=== PATIENT | male | born 1945 | race Caucasian/White ===

== ENCOUNTER 2020-06-02 16:02 | Inpatient (IN) | payer MEDICARE ==
[~2020-06-02] VITALS: Ht 180.3 cm; Wt 87.1 kg
[~2020-06-02 16:02] MED LIST: EPINEPHRINE 1MG SYG 10ML IVP ONE; SODIUM BICARB 8.4% 50ML SYRINGE IVP ONE
[2020-06-02] MEDS ORDERED: PANTOPRAZOLE 40 MG/VIAL ONE ×2 (16:10→23:57)
[2020-06-02 16:29] LABS: BASOPHILS % (AUTO) 0.2 % (0.0-5.0); EOSINOPHILS % (AUTO) 0.3 % (0.0-8.0); LYMPHOCYTES % (AUTO) 7.2 % (21.0-51.0); MEAN CORPUSCULAR HEMOGLOBIN 34.5 pg (27.0-33.0); MEAN CORPUSCULAR HGB CONC 30.2 g/dL (32.0-36.0); MEAN CORPUSCULAR VOLUME 114.5 fL (79-99); MONOCYTES % (AUTO) 3.8 % (3.0-13.0); NEUTROPHILS % (AUTO) 87.6 % (40.0-77.0); NUCLEATED RED BLOOD CELLS 0.6 % (0.0-0.19); PLATELET COUNT (AUTO) 310 K/uL (130-400); RED CELL DISTRIBUTION WIDTH 19.5 % (11.0-15.5); WHITE BLOOD COUNT (AUTO) 11.4 K/uL (4.8-10.8)
[2020-06-02 16:31] LABS: HEMATOCRIT 12.6 % (42-54)
[2020-06-02 16:37] LABS: ALBUMIN 2.3 g/dL (3.5-5.0); BILIRUBIN,TOTAL 0.2 mg/dL (0.2-1.0); CREATININE 2.2 mg/dL (0.5-1.5); POTASSIUM 4.3 mmol/L (3.5-5.1); TOTAL PROTEIN, SERUM 5.1 g/dL (6.0-8.3)
[2020-06-02 16:47] LABS: APPEARANCE,URINE Clear (CLEAR); BILIRUBIN,URINE Negative (NEGATIVE); COLOR,URINE Yellow (YELLOW); GLUCOSE, URINE (UA) Negative (NEGATIVE); KETONES,URINE Negative (NEGATIVE); LEUKOCYTE ESTERASE ,URINE Negative (NEGATIVE); NITRATE,URINE Negative (NEGATIVE); OCCULT BLOOD,URINE Negative (NEGATIVE); PROTEIN,URINE Negative (NEGATIVE); UROBILINOGEN,URINE 0.2 mg/dL (0.2-1.0)
[2020-06-02 17:11] LABS: INR 1.12 (0.85-1.15); PROTHROMBIN TIME 11.9 SEC (9.6-11.6)
[2020-06-02 17:13] LABS: PARTIAL THROMBOPLASTIN TIME 23.3 SEC (26.3-35.5)
[2020-06-02] MEDS ORDERED: ONDANSETRON 4MG INJ IV PRN (18:15)
[2020-06-02] MEDS ORDERED: ACETAMINOPHEN 325 MG TAB PO PRN ×2 (18:15)
[2020-06-02 18:41] LABS: RETICULOCYTE % (AUTO) 16.08 % (0.42-2.23)
[2020-06-02 18:45] LABS: HEMATOCRIT 11.8 % (42-54)
[2020-06-02 18:50] LABS: % IRON SATURATION 89.9 % (30-44)
[2020-06-02 19:01] LABS: ALBUMIN 2.2 g/dL (3.5-5.0); BILIRUBIN,TOTAL 0.2 mg/dL (0.2-1.0); CREATININE 2.2 mg/dL (0.5-1.5); POTASSIUM 4.2 mmol/L (3.5-5.1); TROPONIN I 0.59 ng/mL (0.00-0.06)
[2020-06-03] VITALS (22 sets, daily range): BP systolic 109–161; BP diastolic 43–99
[2020-06-03] MEDS ORDERED: ONDANSETRON 4MG INJ ONE (02:30)
[2020-06-03 03:22] LABS: TROPONIN I 1.22 ng/mL (0.00-0.06)
[2020-06-03 03:28] LABS: HEMATOCRIT 19.4 % (42-54)
[2020-06-03 03:36] LABS: HEMOGLOBIN A1C 4.8 % (4.0-6.0)
[2020-06-03 04:12] LABS: CREATININE 1.9 mg/dL (0.5-1.5); POTASSIUM 4.1 mmol/L (3.5-5.1)
[2020-06-03 08:30] LABS: HEMATOCRIT 18.8 % (42-54)
[2020-06-03] MEDS ORDERED: PANTOPRAZOLE 40 MG/VIAL ONE (08:39)
[2020-06-03] MEDS ORDERED: 0.9%NACL 100ML 100 ML IV ONE (08:39)
[2020-06-03] MEDS: SOTALOL HCL 80 MG TABLET PO SCH ×2 (09:00→20:43)
[2020-06-03] MEDS ORDERED: LACTATED RINGERS 1000ML 1,000 ML IV SCH ×2 (09:30→15:15)
[2020-06-03] MEDS ORDERED: HUMAN PROTHROMBIN COMPLX(PCC) 500 UNIT KIT IV SCH (09:45)
[2020-06-03] MEDS ORDERED: TRANEXAMIC ACID 1000MG/10ML IV ONE (09:45)
[2020-06-03] MEDS ORDERED: TRANEXAMIC ACID 1,000 MG in 0.9%NACL 100ML 100 ML IV SCH (10:15)
[2020-06-03] MEDS ORDERED: HUMAN PROTHROMBIN COMPLX(PCC) 500 UNIT KIT IV ONE (10:15)
[2020-06-03 11:31] LABS: CREATINE KINASE, TOTAL 49 U/L (21-232); MYOGLOBIN 61 ng/mL (10-92)
[2020-06-03] MEDS ORDERED: LIDOCAINE HCL 400MG/20ML VIAL ONE ×2 (11:58→14:39)
[2020-06-03] MEDS ORDERED: PROPOFOL 10 MG/ML 20ML VIAL IV ONE ×3 (11:58→15:18)
[2020-06-03] MEDS ORDERED: EPINEPHRINE PF 1MG AMP ONE ×2 (12:19→15:17)
[2020-06-03 14:20] LABS: HEMATOCRIT 23.3 % (42-54)
[2020-06-03] MEDS ORDERED: IODIXANOL 320 MG/ML 100 ML VIAL ONE ×2 (14:38→17:05)
[2020-06-03] MEDS ORDERED: SOLU-MEDROL 125MG VIAL ONE (14:50)
[2020-06-03] MEDS ORDERED: DiphenhydrAMINE HCL 50 MG/ML VIAL ONE (14:51)
[2020-06-03] MEDS ORDERED: DiphenhydrAMINE HCL 50 MG/ML VIAL IV SCH (14:59)
[2020-06-03] MEDS ORDERED: SOLU-MEDROL 125MG VIAL IVP SCH (15:00)
[2020-06-03] MEDS ORDERED: FENTANYL 2500MCG+NS 250ML 250 ML IV STA (15:04)
[2020-06-03] MEDS ORDERED: FENTANYL 2500MCG+NS 250ML 250 ML IV SCH (15:15)
[2020-06-03] MEDS ORDERED: SUCCINYLCHOLINE 200MG/10ML SYR ONE (15:18)
[2020-06-03] MEDS ORDERED: ROCURONIUM 10MG/1ML SYR 10 MG/ML ML ONE (15:18)
[2020-06-03] MEDS ORDERED: MIDAZOLAM HCL 1 MG/ML 2ML VIAL ONE ×2 (15:19→17:39)
[2020-06-03] MEDS ORDERED: NOREPINEPHRINE BITARTRATE 1 MG/1 ML ML IV ONE (15:31)
[2020-06-03] MEDS ORDERED: KETAMINE 50MG/ML SYRINGE 50 MG/ML DISP.SYRIN IV ONE (15:31)
[2020-06-03] MEDS ORDERED: GLYCOPYRROLATE 1 MG/5 ML SYRINGE ONE (15:39)
[2020-06-03] MEDS ORDERED: NOREPINEPHRIN 4MG/NS 250ML 250 ML IV SCH (15:45)
[2020-06-03] MEDS ORDERED: FENTANYL CITRATE PF 0.05 MG/ML 1,000 MCG in 0.9%NACL 100ML 100 ML IVPB SCH (15:45)
[2020-06-03] MEDS ORDERED: PROPOFOL 1000 MG/100 ML IV PRN (15:45)
[2020-06-03 18:59] LABS: HEMATOCRIT 23.7 % (42-54)
[2020-06-03] MEDS: PROPOFOL 1000 MG/100 ML IV PRN ×2 (19:09→22:24)
[2020-06-03] MEDS ORDERED: SUCRALFATE 1 GM TABLET ONE (19:43)
[2020-06-03] MEDS: SUCRALFATE 1 GM TABLET NG SCH (20:42)
[2020-06-03] MEDS ORDERED: 0.9% NACL 250ML 250 ML IV ONE (21:22)
[2020-06-03] MEDS: PANTOPRAZOLE 40MG INJ 80 MG in 0.9%NACL 100ML 100 ML IV SCH (22:25)
[2020-06-04] VITALS (83 sets, daily range): BP systolic 75–156; BP diastolic 40–143
[2020-06-04 01:04] LABS: HEMATOCRIT 21.9 % (42-54)
[2020-06-04] MEDS: PROPOFOL 1000 MG/100 ML IV PRN ×4 (03:01→20:37)
[2020-06-04 03:44] LABS: ALBUMIN 1.9 g/dL (3.5-5.0); BILIRUBIN,TOTAL 0.4 mg/dL (0.2-1.0); CREATININE 1.3 mg/dL (0.5-1.5); POTASSIUM 3.9 mmol/L (3.5-5.1); TOTAL PROTEIN, SERUM 4.4 g/dL (6.0-8.3)
[2020-06-04 04:08] LABS: ABG BASE EXCESS -7.2 mmol/L (-2.0-3.0); ABG HCO3 17.3 mmol/L (21.0-28.0); ABG OXYGEN SATURATION 99.2 % (95.0-99.0); ABG PCO2 33 mmHg (35-48)
[2020-06-04 04:11] LABS: HEMATOCRIT 21.9 % (42-54); MEAN CORPUSCULAR HEMOGLOBIN 31.6 pg (27.0-33.0); MEAN CORPUSCULAR HGB CONC 33.8 g/dL (32.0-36.0); MEAN CORPUSCULAR VOLUME 93.6 fL (79-99); NUCLEATED RED BLOOD CELLS 0.4 % (0.0-0.19); RED BLOOD CELL COUNT(AUTO) 2.34 MIL/uL (4.50-6.20); RED CELL DISTRIBUTION WIDTH 19.8 % (11.0-15.5); WHITE BLOOD COUNT (AUTO) 9.6 K/uL (4.8-10.8)
[2020-06-04] MEDS: SUCRALFATE 1 GM TABLET NG SCH ×3 (05:43→20:38)
[2020-06-04] MEDS: SOTALOL HCL 80 MG TABLET PO SCH ×2 (08:52→20:38)
[2020-06-04] MEDS ORDERED: ALBUMIN (HUMAN) 5% 500 ML IV ONE (11:00)
[2020-06-04] MEDS ORDERED: PROPOFOL 10 MG/ML 20ML VIAL IV ONE (11:22)
[2020-06-04] MEDS ORDERED: FENTANYL CITRATE PF 50 MCG/1 ML 5ML AMP IV ONE (11:23)
[2020-06-04] MEDS ORDERED: ROCURONIUM 10MG/1ML SYR 10 MG/ML ML ONE ×2 (11:24→12:52)
[2020-06-04] MEDS ORDERED: EPHEDRINE SULFATE 50 MG/ML AMPULE ONE (11:29)
[2020-06-04] MEDS ORDERED: ZOSYN 3.375GM+NS 50ML 50 ML IV ONE (11:39)
[2020-06-04 11:49] LABS: ABG BASE EXCESS -7.1 mmol/L (-2.0-3.0); ABG HCO3 18.6 mmol/L (21.0-28.0); ABG OXYGEN SATURATION 98.2 % (95.0-99.0); ABG PCO2 38 mmHg (35-48)
[2020-06-04] MEDS ORDERED: SODIUM BICARB 8.4% 50ML SYRINGE ONE (11:54)
[2020-06-04] MEDS ORDERED: CEFAZOLIN SODIUM 1 GM VIAL ONE (12:22)
[2020-06-04] MEDS ORDERED: NEOMY SULF/POLYMYXIN B SULFATE 1 ML AMPUL IR ONE (12:22)
[2020-06-04] MEDS ORDERED: PHENYLEPHRINE HCL 10 MG/ML 1ML VIAL IV ONE (12:46)
[2020-06-04] MEDS ORDERED: ONDANSETRON 4MG INJ ONE (12:47)
[2020-06-04] MEDS ORDERED: DEXAMETHASONE SOD PHOSPHATE 10MG/ML 1ML VIAL ONE (12:47)
[2020-06-04] MEDS: LACTATED RINGERS 1000ML 1,000 ML IV ONE (15:05)
[2020-06-04 17:42] LABS: HEMATOCRIT 35.2 % (42-54)
[2020-06-04 18:00] LABS: INR 1.09 (0.85-1.15); PROTHROMBIN TIME 11.6 SEC (9.6-11.6)
[2020-06-04] MEDS: PANTOPRAZOLE 40MG INJ 80 MG in 0.9%NACL 100ML 100 ML IV SCH (22:13)
[2020-06-05] VITALS (137 sets, daily range): BP systolic 66–235; BP diastolic 41–234
[2020-06-05] MEDS: PROPOFOL 1000 MG/100 ML IV PRN ×4 (03:10→19:50)
[2020-06-05 03:34] LABS: ABG BASE EXCESS -5.4 mmol/L (-2.0-3.0); ABG HCO3 20.1 mmol/L (21.0-28.0); ABG OXYGEN SATURATION 94.3 % (95.0-99.0); ABG PCO2 40 mmHg (35-48)
[2020-06-05 03:48] LABS: HEMATOCRIT 31.3 % (42-54); MEAN CORPUSCULAR HEMOGLOBIN 30.7 pg (27.0-33.0); MEAN CORPUSCULAR HGB CONC 33.2 g/dL (32.0-36.0); MEAN CORPUSCULAR VOLUME 92.3 fL (79-99); RED BLOOD CELL COUNT(AUTO) 3.39 MIL/uL (4.50-6.20); RED CELL DISTRIBUTION WIDTH 21.1 % (11.0-15.5); WHITE BLOOD COUNT (AUTO) 7.6 K/uL (4.8-10.8)
[2020-06-05 04:04] LABS: ALBUMIN 2.2 g/dL (3.5-5.0); BILIRUBIN,TOTAL 1.4 mg/dL (0.2-1.0); CREATININE 1.3 mg/dL (0.5-1.5); POTASSIUM 3.9 mmol/L (3.5-5.1); TOTAL PROTEIN, SERUM 5.1 g/dL (6.0-8.3)
[2020-06-05] MEDS: SUCRALFATE 1 GM TABLET NG SCH ×3 (05:56→19:31)
[2020-06-05] MEDS ORDERED: DEXTROSE 5%-WATER 500 ML IV ONE (07:45)
[2020-06-05] MEDS ORDERED: VASOPRESSIN 40 UNITS in 0.9%NACL 50ML 40 ML IV SCH (08:00)
[2020-06-05] MEDS: SOTALOL HCL 80 MG TABLET PO SCH ×2 (08:52→19:31)
[2020-06-05 12:37] LABS: CREATININE 1.7 mg/dL (0.5-1.5)
[2020-06-05] MEDS: DEXTROSE 5 %-0.225 % NACL 1,000 ML IV SCH (18:50)
[2020-06-05] MEDS: PANTOPRAZOLE 40MG INJ 80 MG in 0.9%NACL 100ML 100 ML IV SCH (19:38)
[2020-06-06] VITALS (77 sets, daily range): BP systolic 95–280; BP diastolic 44–278
[2020-06-06] MEDS: PANTOPRAZOLE 40MG INJ 80 MG in 0.9%NACL 100ML 100 ML IV SCH ×3 (04:09→23:40)
[2020-06-06] MEDS: SUCRALFATE 1 GM TABLET NG SCH ×3 (04:09→19:58)
[2020-06-06 05:02] LABS: ALBUMIN 1.8 g/dL (3.5-5.0); BILIRUBIN,TOTAL 2.6 mg/dL (0.2-1.0); POTASSIUM 4.1 mmol/L (3.5-5.1); TOTAL PROTEIN, SERUM 4.6 g/dL (6.0-8.3)
[2020-06-06 07:39] LABS: BASOPHILS % (AUTO) 0.2 % (0.0-5.0); EOSINOPHILS % (AUTO) 0.8 % (0.0-8.0); HEMATOCRIT 31.5 % (42-54); LYMPHOCYTES % (AUTO) 3.5 % (21.0-51.0); MEAN CORPUSCULAR HEMOGLOBIN 30.6 pg (27.0-33.0); MEAN CORPUSCULAR HGB CONC 32.4 g/dL (32.0-36.0); MEAN CORPUSCULAR VOLUME 94.6 fL (79-99); MONOCYTES % (AUTO) 2.2 % (3.0-13.0); NEUTROPHILS % (AUTO) 92.6 % (40.0-77.0); PLATELET COUNT (AUTO) 134 K/uL (130-400); RED BLOOD CELL COUNT(AUTO) 3.33 MIL/uL (4.50-6.20); RED CELL DISTRIBUTION WIDTH 22.3 % (11.0-15.5); WHITE BLOOD COUNT (AUTO) 9.2 K/uL (4.8-10.8)
[2020-06-06] MEDS: DEXTROSE 5 %-0.225 % NACL 1,000 ML IV SCH (08:51)
[2020-06-06] MEDS: SOTALOL HCL 80 MG TABLET PO SCH ×2 (09:00→19:58)
[2020-06-06] MEDS ORDERED: ASPIRIN 300 MG SUPPOSITORY PR SCH (09:00)
[2020-06-06] MEDS: FLUCONAZOLE 200 MG/NS 100 ML 100 ML IV SCH (09:35)
[2020-06-06] MEDS ORDERED: 0.9% NACL 250ML 250 ML IV ONE (09:40)
[2020-06-06] MEDS ORDERED: 0.9% NACL 500ML IV.SOLN 500 ML IV PRN (16:15)
[2020-06-06 18:23] LABS: INR 1.22 (0.85-1.15); PROTHROMBIN TIME 12.8 SEC (9.6-11.6)
[2020-06-06 19:32] LABS: APPEARANCE,URINE Cloudy (CLEAR); BILIRUBIN,URINE Small (NEGATIVE); COLOR,URINE Dark Yellow (YELLOW); GLUCOSE, URINE (UA) Negative (NEGATIVE); KETONES,URINE Negative (NEGATIVE); LEUKOCYTE ESTERASE ,URINE Moderate (NEGATIVE); NITRATE,URINE Negative (NEGATIVE); OCCULT BLOOD,URINE Small (NEGATIVE); PROTEIN,URINE POS 1+ mg/dL (NEGATIVE)
[2020-06-06 19:36] LABS: CREATININE,URINE RANDOM 70 mg/dL (30-135); SODIUM,URINE RANDOM 35 mmol/l (40-220)
[2020-06-06 19:48] LABS: BACTERIA,URINE Moderate /HPF (None Seen); MUCUS,URINE Few LPF (None Seen); SQUAMOUS EPITHELIAL CELL,UR 0-2 /HPF (0-2)
[2020-06-06] MEDS: POTASSIUM CHLORIDE 20MEQ/100ML 100 ML IV SCH (22:08)
[2020-06-06] MEDS: METOPROLOL TARTRATE 1 MG/ML 5ML VIAL IV SCH (22:11)
[2020-06-07] VITALS (48 sets, daily range): BP systolic 93–155; BP diastolic 66–119
[2020-06-07] MEDS: POTASSIUM CHLORIDE 20MEQ/100ML 100 ML IV SCH (00:11)
[2020-06-07] MEDS: DEXTROSE 5 %-0.225 % NACL 1,000 ML IV SCH (00:28)
[2020-06-07 03:35] LABS: BASOPHILS % (AUTO) 0.2 % (0.0-5.0); EOSINOPHILS % (AUTO) 0.2 % (0.0-8.0); LYMPHOCYTES % (AUTO) 2.6 % (21.0-51.0); MEAN CORPUSCULAR HEMOGLOBIN 31.3 pg (27.0-33.0); MEAN CORPUSCULAR HGB CONC 33.6 g/dL (32.0-36.0); NEUTROPHILS % (AUTO) 94.8 % (40.0-77.0); PLATELET COUNT (AUTO) 154 K/uL (130-400); RED BLOOD CELL COUNT(AUTO) 3.55 MIL/uL (4.50-6.20); RED CELL DISTRIBUTION WIDTH 21.3 % (11.0-15.5); WHITE BLOOD COUNT (AUTO) 9.4 K/uL (4.8-10.8)
[2020-06-07 03:57] LABS: ALBUMIN 1.5 g/dL (3.5-5.0); BILIRUBIN,TOTAL 5.7 mg/dL (0.2-1.0); CREATININE 1.3 mg/dL (0.5-1.5); MAGNESIUM 1.8 mg/dL (1.80-2.40); POTASSIUM 3.8 mmol/L (3.5-5.1); TOTAL PROTEIN, SERUM 4.8 g/dL (6.0-8.3); URIC ACID 8.8 mg/dL (2.6-7.2)
[2020-06-07] MEDS: SUCRALFATE 1 GM TABLET NG SCH ×3 (04:11→21:05)
[2020-06-07] MEDS: METOPROLOL TARTRATE 1 MG/ML 5ML VIAL IV SCH ×4 (04:11→22:06)
[2020-06-07] MEDS: SOTALOL HCL 80 MG TABLET PO SCH ×2 (08:39→20:17)
[2020-06-07] MEDS: FLUCONAZOLE 200 MG/NS 100 ML 100 ML IV SCH (08:48)
[2020-06-07] MEDS: ASPIRIN 300 MG SUPPOSITORY PR SCH (09:00)
[2020-06-07] MEDS ORDERED: FUROSEMIDE 20MG VIAL IV SCH (10:15)
[2020-06-07] MEDS: PANTOPRAZOLE 40MG INJ 80 MG in 0.9%NACL 100ML 100 ML IV SCH (10:28)
[2020-06-07] MEDS ORDERED: [UNRECOGNIZED DRUG - CODE] TP (11:03)
[2020-06-07] MEDS ORDERED: DEXMEDETOMIDINE HCL 400 MCG in 0.9%NACL 100ML 100 ML IV SCH (14:00)
[2020-06-07] MEDS ORDERED: CLINIMIX-E 5%AA /D15%W 2000ML 2,000 ML IV NR (14:24)
[2020-06-07] MEDS ORDERED: FAT EMULSIONS 20% 250ML 250 ML IV SCH (14:26)
[2020-06-07] MEDS: CLINIMIX-E4.25%AA/D5+LYT2000ML 2,000 ML IV NR (16:37)
[2020-06-07] MEDS ORDERED: METOPROLOL TARTRATE 1 MG/ML 5ML VIAL IV SCH (16:51)
[2020-06-07] MEDS ORDERED: NICARDIPINE 25MG INJ 25 MG in 0.9% NACL 250ML 240 ML IV SCH (17:04)
[2020-06-07] MEDS ORDERED: DILTIAZEM 25MG INJ IVP SCH (17:04)
[2020-06-07] MEDS ORDERED: PHARMACY COMMUNICATION MISC SCH (18:00)
[2020-06-07 19:26] LABS: CREATININE 1.3 mg/dL (0.5-1.5); POTASSIUM 3.5 mmol/L (3.5-5.1)
[2020-06-07] MEDS: PANTOPRAZOLE 40 MG/VIAL IVP SCH (20:16)
[2020-06-07] MEDS: FUROSEMIDE 20MG VIAL IV SCH (20:17)
[2020-06-08] VITALS (94 sets, daily range): BP systolic 62–155; BP diastolic 41–145
[2020-06-08 03:27] LABS: ABG BASE EXCESS -6.1 mmol/L (-2.0-3.0); ABG HCO3 14.6 mmol/L (21.0-28.0); ABG OXYGEN SATURATION 95.2 % (95.0-99.0); ABG PCO2 20 mmHg (35-48)
[2020-06-08] MEDS: FUROSEMIDE 20MG VIAL IV SCH ×3 (03:50→20:47)
[2020-06-08] MEDS: DILTIAZEM 125 MG/25 ML INJ 125 MG in 0.9%NACL 100ML 100 ML IV SCH (03:50)
[2020-06-08] MEDS: METOPROLOL TARTRATE 1 MG/ML 5ML VIAL IV SCH ×4 (03:51→21:41)
[2020-06-08] MEDS: SUCRALFATE 1 GM TABLET NG SCH ×3 (04:11→20:47)
[2020-06-08 04:20] LABS: MAGNESIUM 1.9 mg/dL (1.80-2.40)
[2020-06-08 04:38] LABS: CREATININE 1.7 mg/dL (0.5-1.5); POTASSIUM 4.5 mmol/L (3.5-5.1)
[2020-06-08 04:39] LABS: BASOPHILS % (AUTO) 0.2 % (0.0-5.0); HEMATOCRIT 40.3 % (42-54); LYMPHOCYTES % (AUTO) 4.1 % (21.0-51.0); MEAN CORPUSCULAR HEMOGLOBIN 29.3 pg (27.0-33.0); MEAN CORPUSCULAR VOLUME 91.4 fL (79-99); MONOCYTES % (AUTO) 2.9 % (3.0-13.0); NEUTROPHILS % (AUTO) 91.6 % (40.0-77.0); NUCLEATED RED BLOOD CELLS 0.4 % (0.0-0.19); PLATELET COUNT (AUTO) 282 K/uL (130-400); RED BLOOD CELL COUNT(AUTO) 4.41 MIL/uL (4.50-6.20); RED CELL DISTRIBUTION WIDTH 21.2 % (11.0-15.5); WHITE BLOOD COUNT (AUTO) 12.4 K/uL (4.8-10.8)
[2020-06-08] MEDS ORDERED: VASOPRESSIN 40 UNITS in 0.9%NACL 50ML 40 ML IV SCH (08:00)
[2020-06-08 08:19] LABS: ABG BASE EXCESS -18.6 mmol/L (-2.0-3.0); ABG HCO3 9.2 mmol/L (21.0-28.0); ABG OXYGEN SATURATION 96.4 % (95.0-99.0); ABG PCO2 28 mmHg (35-48)
[2020-06-08] MEDS ORDERED: PHARMACY COMMUNICATION MISC SCH (08:30)
[2020-06-08] MEDS: SODIUM BICARB 8.4% 50ML SYRING 150 MEQ in 0.9%NACL 1000ML 1,000 ML IV SCH ×2 (08:45→23:55)
[2020-06-08] MEDS: SOTALOL HCL 80 MG TABLET PO SCH ×2 (09:00→20:48)
[2020-06-08] MEDS: FLUCONAZOLE 200 MG/NS 100 ML 100 ML IV SCH (09:00)
[2020-06-08] MEDS: CLINIMIX-E4.25%AA/D5+LYT2000ML 2,000 ML IV NR (09:00)
[2020-06-08] MEDS: PANTOPRAZOLE 40 MG/VIAL IVP SCH ×2 (09:00→20:47)
[2020-06-08] MEDS: ASPIRIN 300 MG SUPPOSITORY PR SCH (09:00)
[2020-06-08 10:48] LABS: ABG BASE EXCESS -12.2 mmol/L (-2.0-3.0); ABG HCO3 12.4 mmol/L (21.0-28.0); ABG OXYGEN SATURATION 99.5 % (95.0-99.0); ABG PCO2 26 mmHg (35-48)
[2020-06-08 11:10] LABS: BASOPHILS % (AUTO) 0.7 % (0.0-5.0); EOSINOPHILS % (AUTO) 1.5 % (0.0-8.0); HEMATOCRIT 38.8 % (42-54); LYMPHOCYTES % (AUTO) 6.4 % (21.0-51.0); MEAN CORPUSCULAR HEMOGLOBIN 30.7 pg (27.0-33.0); MEAN CORPUSCULAR HGB CONC 32.5 g/dL (32.0-36.0); MEAN CORPUSCULAR VOLUME 94.6 fL (79-99); MONOCYTES % (AUTO) 3.6 % (3.0-13.0); NEUTROPHILS % (AUTO) 84.2 % (40.0-77.0); NUCLEATED RED BLOOD CELLS 1.7 % (0.0-0.19); PLATELET COUNT (AUTO) 153 K/uL (130-400); RED CELL DISTRIBUTION WIDTH 21.2 % (11.0-15.5); WHITE BLOOD COUNT (AUTO) 12.1 K/uL (4.8-10.8)
[2020-06-08 11:15] LABS: CREATININE 2.5 mg/dL (0.5-1.5); POTASSIUM 5.6 mmol/L (3.5-5.1)
[2020-06-08 11:25] LABS: ALBUMIN 1.5 g/dL (3.5-5.0); MAGNESIUM 2.2 mg/dL (1.80-2.40); TOTAL PROTEIN, SERUM 5.2 g/dL (6.0-8.3)
[2020-06-08] MEDS ORDERED: DEXTROSE 50%-WATER 25 GM/50 ML VIAL IV SCH (12:15)
[2020-06-08] MEDS ORDERED: INSULIN HUMULIN R 100 UNIT/ML 3ML IV SCH (12:15)
[2020-06-08] MEDS ORDERED: CALCIUM GLUC 1GM/10ML VIAL IV SCH (12:15)
[2020-06-08] MEDS ORDERED: CALCIUM GLUC 1GM 1 GM in 0.9%NACL 50ML 50 ML IV SCH (12:30)
[2020-06-08 17:32] LABS: ALBUMIN 1.4 g/dL (3.5-5.0); BILIRUBIN,TOTAL 8.3 mg/dL (0.2-1.0); CREATININE 3.7 mg/dL (0.5-1.5); POTASSIUM 5.4 mmol/L (3.5-5.1); TOTAL PROTEIN, SERUM 4.5 g/dL (6.0-8.3)
[2020-06-09] VITALS (98 sets, daily range): BP systolic 64–168; BP diastolic 22–79
[2020-06-09] MEDS: FUROSEMIDE 20MG VIAL IV SCH ×3 (02:58→20:03)
[2020-06-09] MEDS: SODIUM BICARB 8.4% 50ML SYRING 150 MEQ in 0.9%NACL 1000ML 1,000 ML IV SCH ×2 (03:16→14:54)
[2020-06-09] MEDS: METOPROLOL TARTRATE 1 MG/ML 5ML VIAL IV SCH ×4 (04:00→20:09)
[2020-06-09] MEDS: SUCRALFATE 1 GM TABLET NG SCH (04:13)
[2020-06-09 04:58] LABS: HEMATOCRIT 36.1 % (42-54); MEAN CORPUSCULAR HEMOGLOBIN 30.2 pg (27.0-33.0); MEAN CORPUSCULAR HGB CONC 32.7 g/dL (32.0-36.0); MEAN CORPUSCULAR VOLUME 92.3 fL (79-99); NUCLEATED RED BLOOD CELLS 0.7 % (0.0-0.19); RED BLOOD CELL COUNT(AUTO) 3.91 MIL/uL (4.50-6.20); RED CELL DISTRIBUTION WIDTH 21.1 % (11.0-15.5); WHITE BLOOD COUNT (AUTO) 16.7 K/uL (4.8-10.8)
[2020-06-09 05:15] LABS: ALBUMIN 1.3 g/dL (3.5-5.0); BILIRUBIN,TOTAL 8.6 mg/dL (0.2-1.0); CREATININE 3.5 mg/dL (0.5-1.5); POTASSIUM 4.9 mmol/L (3.5-5.1); TOTAL PROTEIN, SERUM 4.5 g/dL (6.0-8.3)
[2020-06-09] MEDS: PANTOPRAZOLE 40 MG/VIAL IVP SCH ×2 (08:41→20:07)
[2020-06-09] MEDS: FLUCONAZOLE 200 MG/NS 100 ML 100 ML IV SCH (08:41)
[2020-06-09] MEDS: CLINIMIX-E4.25%AA/D5+LYT2000ML 2,000 ML IV NR (08:43)
[2020-06-09] MEDS: ASPIRIN 300 MG SUPPOSITORY PR SCH (09:10)
[2020-06-09 12:24] LABS: ABG OXYGEN SATURATION 95.5 % (95.0-99.0); ABG PCO2 29 mmHg (35-48)
[2020-06-09 13:42] LABS: INR 2.71 (0.85-1.15); PROTHROMBIN TIME 26.5 SEC (9.6-11.6)
[2020-06-09 13:43] LABS: PARTIAL THROMBOPLASTIN TIME 51.9 SEC (26.3-35.5)
[2020-06-09] MEDS: DILTIAZEM 125 MG/25 ML INJ 125 MG in 0.9%NACL 100ML 100 ML IV SCH (16:41)
[2020-06-09] MEDS ORDERED: AMIODARONE 900MG VIAL 900 MG in DEXTROSE 5%-WATER 500 ML IV SCH (19:00)
[2020-06-09] MEDS ORDERED: NOREPINEPHRINE BITARTRATE 16 MG in 0.9% NACL 250ML 250 ML IV SCH (19:00)
[2020-06-09] MEDS ORDERED: AMIODARONE 900MG VIAL 150 MG in DEXTROSE 5%-WATER 100 ML IV SCH (20:00)
[2020-06-09] MEDS ORDERED: NOREPINEPHRINE BITARTRATE 32 MG in 0.9% NACL 250ML 250 ML IV SCH (20:15)
[2020-06-09] MEDS ORDERED: AMIODARONE 900MG VIAL 360 MG in DEXTROSE 5%-WATER 200 ML IV SCH (20:30)
[2020-06-09] MEDS ORDERED: VASOPRESSIN 20 UNITS/ML 1ML VIAL ONE (22:24)
[2020-06-09] MEDS ORDERED: DEXTROSE 50%-WATER 50 ML DISP.SYRIN IV ONE (23:23)
[2020-06-10 00:03] VITALS: BP 58/38
[2020-06-10] MEDS: SODIUM BICARB 8.4% 50ML SYRING 150 MEQ in 0.9%NACL 1000ML 1,000 ML IV SCH (00:32)
[2020-06-10 00:37] VITALS: BP 0/0
[2020-06-10] MEDS ORDERED: AMIODARONE 900MG VIAL 450 MG in DEXTROSE 5%-WATER 250 ML IV SCH (02:30)
[2020-06-10] MEDS: FUROSEMIDE 20MG VIAL IV SCH (03:00)
[2020-06-10] MEDS: METOPROLOL TARTRATE 1 MG/ML 5ML VIAL IV SCH (03:01)
[2020-06-13 02:14] LABS: HEPATITIS A ANTIBODY IGM Negative (Negative); HEPATITIS B CORE IGM Negative (Negative); HEPATITIS Bs ANTIGEN SCREEN P Negative (Negative)
== END 2020-06-10 00:37 | disposition expired | DRG 326 ==
LOC: EDH 16:02 → EDHIP 18:15 → 2CH 06-03 13:57
PROVIDERS: ADMIT Internal Medicine; ATTEND Internal Medicine
PROC: 30233N1 Transfusion of Nonautologous Red Blood Cells into Peripheral Vein, Percutaneous Approach (ICD-10-PCS; 2020-06-02)
PROC: 30233K1 Transfusion of Nonautologous Frozen Plasma into Peripheral Vein, Percutaneous Approach (ICD-10-PCS; principal; 2020-06-03)
PROC: 3E0G8GC Introduction of Other Therapeutic Substance into Upper GI, Via Natural or Artificial Opening Endoscopic (ICD-10-PCS; 2020-06-03)
PROC: 0W3P8ZZ Control Bleeding in Gastrointestinal Tract, Via Natural or Artificial Opening Endoscopic (ICD-10-PCS; 2020-06-03)
PROC: 04LY3DZ Occlusion of Lower Artery with Intraluminal Device, Percutaneous Approach (ICD-10-PCS; 2020-06-03)
PROC: 0DQ98ZZ Repair Duodenum, Via Natural or Artificial Opening Endoscopic (ICD-10-PCS; 2020-06-03)
PROC: 0BH17EZ Insertion of Endotracheal Airway into Trachea, Via Natural or Artificial Opening (ICD-10-PCS; 2020-06-03)
PROC: 5A1955Z Respiratory Ventilation, Greater than 96 Consecutive Hours (ICD-10-PCS; 2020-06-03)
PROC: 0DH60UZ Insertion of Feeding Device into Stomach, Open Approach (ICD-10-PCS; 2020-06-04)
PROC: 0DB90ZZ Excision of Duodenum, Open Approach (ICD-10-PCS; 2020-06-04)
PROC: 0DTJ0ZZ Resection of Appendix, Open Approach (ICD-10-PCS; 2020-06-04)
PROC: 0DBU0ZZ Excision of Omentum, Open Approach (ICD-10-PCS; 2020-06-04)
PROC: 0DHA0UZ Insertion of Feeding Device into Jejunum, Open Approach (ICD-10-PCS; 2020-06-04)
PROC: 30233R1 Transfusion of Nonautologous Platelets into Peripheral Vein, Percutaneous Approach (ICD-10-PCS; 2020-06-04 11:20)
PROC: 05HY33Z Insertion of Infusion Device into Upper Vein, Percutaneous Approach (ICD-10-PCS; 2020-06-06)
PROC: 5A09357 Assistance with Respiratory Ventilation, Less than 24 Consecutive Hours, Continuous Positive Airway Pressure (ICD-10-PCS; 2020-06-06)
PROC: 5A09357 Assistance with Respiratory Ventilation, Less than 24 Consecutive Hours, Continuous Positive Airway Pressure (ICD-10-PCS; 2020-06-07)
PROC: 5A12012 Performance of Cardiac Output, Single, Manual (ICD-10-PCS; 2020-06-08)
PROC: 0W9B30Z Drainage of Left Pleural Cavity with Drainage Device, Percutaneous Approach (ICD-10-PCS; 2020-06-08)
PROC: 5A12012 Performance of Cardiac Output, Single, Manual (ICD-10-PCS; 2020-06-10)
DX: K26.4 Chronic or unspecified duodenal ulcer with hemorrhage (principal); I21.A1 Myocardial infarction type 2; J93.0 Spontaneous tension pneumothorax; K72.00 Acute and subacute hepatic failure without coma; N17.0 Acute kidney failure with tubular necrosis; J96.90 Respiratory failure, unspecified, unspecified whether with hypoxia or hypercapnia; D62 Acute posthemorrhagic anemia; E87.0 Hyperosmolality and hypernatremia; E87.2 Acidosis; G93.1 Anoxic brain damage, not elsewhere classified; I48.92 Unspecified atrial flutter; K26.0 Acute duodenal ulcer with hemorrhage; N18.9 Chronic kidney disease, unspecified; E11.22 Type 2 diabetes mellitus with diabetic chronic kidney disease; I12.9 Hypertensive chronic kidney disease with stage 1 through stage 4 chronic kidney disease, or unspecified chronic kidney disease; I48.0 Paroxysmal atrial fibrillation; E11.621 Type 2 diabetes mellitus with foot ulcer; E11.51 Type 2 diabetes mellitus with diabetic peripheral angiopathy without gangrene; I25.10 Atherosclerotic heart disease of native coronary artery without angina pectoris; D72.829 Elevated white blood cell count, unspecified; E03.9 Hypothyroidism, unspecified; E78.5 Hyperlipidemia, unspecified; E83.51 Hypocalcemia; E87.6 Hypokalemia; E88.09 Other disorders of plasma-protein metabolism, not elsewhere classified; I34.0 Nonrheumatic mitral (valve) insufficiency; I34.1 Nonrheumatic mitral (valve) prolapse; I46.9 Cardiac arrest, cause unspecified; K25.9 Gastric ulcer, unspecified as acute or chronic, without hemorrhage or perforation; Z96.641 Presence of right artificial hip joint; Z96.652 Presence of left artificial knee joint; L97.519 Non-pressure chronic ulcer of other part of right foot with unspecified severity; Z20.822 Contact with and (suspected) exposure to COVID-19; I25.2 Old myocardial infarction; Z79.01 Long term (current) use of anticoagulants; Z79.1 Long term (current) use of non-steroidal anti-inflammatories (NSAID); Z79.82 Long term (current) use of aspirin; Z79.899 Other long term (current) drug therapy; Z87.891 Personal history of nicotine dependence; Z95.1 Presence of aortocoronary bypass graft; Z95.2 Presence of prosthetic heart valve; Z95.5 Presence of coronary angioplasty implant and graft; Z95.820 Peripheral vascular angioplasty status with implants and grafts; Z88.8 Allergy status to other drugs, medicaments and biological substances; Z91.041 Radiographic dye allergy status
CPT/HCPCS: 36245; 36247; 36415; 36430; 36600; 37242; 43255; 45388; 70450; 71045; 74176; 75726; 76705; 80048; 80053; 80074; 81001; 81003; 82140; 82270; 82435; 82550; 82570; 82803; 82947; 82948; 83036; 83540; 83550; 83605; 83690; 83735; 83874; 83880; 83935; 84100; 84132; 84145; 84295; 84300; 84484; 84550; 85014; 85018; 85025; 85027; 85045; 85049; 85384; 85610; 85730; 86850; 86900; 86901; 86922; 86923; 86927; 87040; 87077; 87088; 87186; 87426; 88305; 92950; 93005; 93306; 93880; 93926; 93970; 94002; 94003; A4344; A6250; C1751; C1760; C1769; C1894; C9113; G0378; J0171; J0282; J0330; J0610; J0690; J1100; J1200; J1450; J1644; J1815; J1940; J2250; J2370; J2405; J2543; J2704; J2930; J3010; J3480; J3490; J7030; J7040; J7042; J7050; J7060; J7070; J7120; P9012; P9016; P9017; P9034; P9045; Q9967